=== PATIENT | female | born 1955 | race Caucasian/White ===

== ENCOUNTER → 2016-08-20 | Day surgery (SDC) | payer BC ==
[~2016-08-20] MED LIST: AMIT1TAB79 PO; ASPI325T PO; CALC1TAB12 PO; CLOB0.055 TOPICAL; FISHCAP4 PO; FLUOCRE; HYDR25TA5 PO; LACTATED RINGER'S 1000 ML INJ 1,000 ML ONE; LEVO75TA3 PO; METO-426 PO; METO50TA PO; MULT1CHW70; OMEP20CA2; PROPOFOL 200 MG/20 ML AMP IV ONE; REDCAP2; ZYRT10CA PO; [UNRECOGNIZED DRUG - CODE]; [UNRECOGNIZED DRUG - OTHER]
--- NOTE | 2016-08-20 12:39 | GIPROC ---
[facility] [address], [address] EGD PROCEDURE REPORT EXAM DATE: 08/20/2016 PATIENT NAME: Brenda Porter MR #: [id number] BIRTHDATE: 1955 ATTENDING: Stuart Mac MD ORDER #: [id number] EXPORT ADMINISTRATOR: Olga Robert RN STATUS: outpatient INDICATIONS: The patient is a 61 yr old female here for an EGD due to history of Castellanos's esophagus PROCEDURE PERFORMED: EGD w/ biopsy MEDICATIONS: None and Per Anesthesia. TOPICAL ANESTHETIC: CONSENT: The patient understands the risks and benefits of the procedure and understands that these risks include, but are not limited to: sedation, allergic reaction, infection, perforation and/or bleeding. Alternative means of evaluation and treatment include, among others: physical exam, x-rays, and/or surgical intervention. The patient elects to proceed with this endoscopic procedure. medical equipment was checked for proper function. Hand hygiene and appropriate measures for infection prevention was taken. After the risks, benefits and alternatives of the procedure were thoroughly explained, Informed consent was verified, confirmed and timeout was successfully executed by the treatment team. The patient was anesthetized with topical anesthesia and the EC-3890Li ([id number]), EC-3890Li ([id number]), and EG-2990i ([id number]) endoscope was introduced through the mouth and advanced to the second portion of the duodenum. Retroflexed views revealed no abnormalities The gastroscope was then slowly withdrawn and removed. ESOPHAGUS: The mucosa of the esophagus appeared normal. Multiple biopsies were performed. The endoscopy was otherwise normal. ADVERSE EVENTS: There were no complications. IMPRESSIONS: 1. Normal endoscopy otherwise 2. Retroflexed views revealed no abnormalities 3. irregular Z line RECOMMENDATIONS: 1. Await biopsy results. Biopsy results will not be ready for 7-10 days. If you don't hear from us in two weeks, call our office for biopsy results. 2. Follow-up: GI clinic PRN 3. Anti-reflux regimen PATIENT CONDITION: stable DISPOSITION: Home REPEAT EXAM: Stuart Mac MD eSigned: Stuart Mac MD 08/20/2016 12:38 PM cc: Any Conde
== END | disposition home or self-care (01) ==
LOC: ESDC 09:58
PROVIDERS: ATTEND Internal Medicine Gastroenterology
DX: K22.70 Barrett's esophagus without dysplasia (principal); K22.9 Disease of esophagus, unspecified
CPT/HCPCS: 00740; 43239; 88305; J3010; J7120